=== PATIENT | male | born 1985 | race African-American/Black ===

== ENCOUNTER 2019-02-20 12:48 | Emergency (ER) | payer SELFPAY ==
[~2019-02-20] VITALS: Ht 157.5 cm; Wt 73.0 kg
[2019-02-20 13:06] VITALS: BP 150/99
== END 2019-02-20 15:20 | disposition left against medical advice (07) ==
LOC: ER 13:02
DX: Z53.21 Procedure and treatment not carried out due to patient leaving prior to being seen by health care provider (principal)